=== PATIENT | male | born 1985 | race Caucasian/White ===

== ENCOUNTER 2022-01-01 11:33 | Emergency (ER) | payer OTHER ==
[2022-01-01] MEDS ORDERED: LIDOCAINE 1% W/EPI 1:100,000 MDV 50 ML VIAL ONE (11:46)
[2022-01-01] MEDS ORDERED: HYDROCODONE/APAP 10/325 TAB ONE ×2 (11:57→12:06)
--- NOTE | 2022-01-01 12:01 | ER ---
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 ll1 Bleeding controlled with dressing in place. Gait steady. PMS Intact. Coronavirus screen: Vaccine status: Patient reports being unvaccinated. Client denies travel out of the [place] in the last 14 days. At this time, the client does not indicate any symptoms associated with coronavirus-19. Ebola Screen: Patient denies travel to an Ebola-affected area in the 21 days before illness onset. Initial Sepsis Screen: Does the patient meet any 2 criteria? HR > 90 bpm. No. Patient's initial sepsis screen is negative. Does the patient have a suspected source of infection? Yes: Skin breakdown/wound. Risk Assessment: Do you want to hurt yourself or someone else? Patient reports no desire to harm self or others. Onset of symptoms was January 01, 2022. 11:37 Method Of Arrival: Wheelchair ll1 11:37 Acuity: BRUNO 2 ll1 Historical: - Allergies: 11:36 No Known Allergies; ll1 - Home Meds: 11:36 testerone twice weekly [Active]; losartan-hydrochlorothiazide 50-12.5 mg oral tab ll1 [Active]; [place] Thyroid 30 mg Oral tab [Active]; - PMHx: 11:36 Hypertensive disorder; Hypothyroidism; ll1 - PSHx: 11:36 Appendectomy; ll1 - Immunization history:: Client reports having NOT received the Covid vaccine. Last tetanus immunization: up to date. - Social history:: Smoking status: Patient denies any tobacco usage or history of. - Family history:: not pertinent. Screenin:08 Abuse screen: Denies threats or abuse. Denies injuries from another. Nutritional ld1 screening: No deficits noted. Tuberculosis screening: No symptoms or risk factors identified. Fall Risk None identified. Assessment: 12:08 General: Appears in no apparent distress. comfortable, Behavior is calm, cooperative, ld1 appropriate for age. Pain: Complains of pain in medial aspect of right calf Pain does not radiate. Pain currently is 8 out of 10 on a pain scale. Quality of pain is described as throbbing, Pain began suddenly. Neuro: Level of Consciousness is awake, alert, obeys commands, Oriented to person, place, time, situation. Cardiovascular: Capillary refill < 3 seconds Patient's skin is warm and dry. Respiratory: Airway is patent Respiratory effort is even, unlabored, Respiratory pattern is regular, symmetrical. GI: Abdomen is round non-distended. : No signs and/or symptoms were reported regarding the genitourinary system. EENT: No signs and/or symptoms were reported regarding the EENT system. Derm: Wound noted medial aspect of right calf. Injury Description: Laceration sustained to medial aspect of right calf. Vital Signs: 11:37 Pulse 106; Resp 18; Pulse Ox 97% ; Weight 172.37 kg; Height 6 ft. 2 in. (187.96 cm); ll1 Pain 4/10; 12:08 BP 139 / 86; Pulse 99; Resp 18; Pulse Ox 98% on R/A; ld1 11:37 Body Mass Index 48.79 (172.37 kg, 187.96 cm) ll1 ED Course: 11:36 Patient arrived in ED. eb 11:36 Patient has correct armband on for positive identification. Bed in low position. Call mh5 light in reach. Side rails up X 1. Pulse ox on. NIBP on. 11:39 Fred Collado MD is Attending Physician. ma2 11:39 Triage completed. ll1 11:52 Catherine Hopper, RN is Primary Nurse. aguilar 12:08 Assist provider with laceration repair on medial aspect of right calf using ramses. ld1 Performed by Fred Collado MD Dressed with Kerlix, Patient tolerated well. Patient did not have IV access during this emergency room visit. 12:31 Arm band placed on right wrist. ld1 Administered Medications: 12:06 Drug: [place] (HYDROcodone-acetaminophen) 10 mg-325 mg 1 tabs Route: PO; aguilar 12:06 Follow up: Response: No adverse reaction aguilar Outcome: 12:01 Discharge ordered by . ma2 12:31 Discharged to home ambulatory, with family. ld1 12:31 Condition: stable 12:31 Discharge instructions given to patient, Instructed on discharge instructions, follow up and referral plans. medication usage, Demonstrated understanding of instructions, follow-up care, medications, Prescriptions given X 2. 12:31 Patient left the ED. ld1 Signatures: Ria Blackburn Fred Quach MD MD ma2 Tonya Anton Lynsay, RN RN 1 Kimberly Jordan RN RN ld1 Catherine Hopper RN RN aguilar
--- NOTE | 2022-01-01 12:01 | EDPHYS ---
Physician Documentation [facility] Name: Alfonso Fuentes Age: 36 yrs Sex: Male : 1985 Arrival Date: 01/01/2022 Time: 11:36 Bed 4 Private MD: ED Physician Fred Collado HPI: 01/01 11:57 This 36 yrs old Male presents to ER via Wheelchair with complaints of LACERation. ma2 11:57 Of a 36-year-old male sustained right lower extremity laceration from a brand-new ma2 chainsaw. 11:57 The patient presents with. Onset: The symptoms/episode began/occurred suddenly, 1 ma2 hour(s) ago. Historical: - Allergies: 11:36 No Known Allergies; ll1 - Home Meds: 11:36 testerone twice weekly [Active]; losartan-hydrochlorothiazide 50-12.5 mg oral tab ll1 [Active]; [place] Thyroid 30 mg Oral tab [Active]; - PMHx: 11:36 Hypertensive disorder; Hypothyroidism; ll1 - PSHx: 11:36 Appendectomy; ll1 - Immunization history:: Client reports having NOT received the Covid vaccine. Last tetanus immunization: up to date. - Social history:: Smoking status: Patient denies any tobacco usage or history of. - Family history:: not pertinent. ROS: 11:57 MS/extremity: Negative for injury or acute deformity, decreased range of motion, ma2 deformity. 11:57 Constitutional: Negative for fever, chills, and weight loss. 11:57 All other systems are negative. Exam: 11:57 Constitutional: This is a well developed, well nourished patient who is awake, alert, ma2 and in no acute distress. Head/Face: Normocephalic, atraumatic. Eyes: Pupils equal round and reactive to light, extra-ocular motions intact. Lids and lashes normal. Conjunctiva and sclera are non-icteric and not injected. Cornea within normal limits. Periorbital areas with no swelling, redness, or edema. ENT: Nares patent. No nasal discharge, no septal abnormalities noted. Tympanic membranes are normal and external auditory canals are clear. Oropharynx with no redness, swelling, or masses, exudates, or evidence of obstruction, uvula midline. Mucous membranes moist. Neck: Trachea midline, no thyromegaly or masses palpated, and no cervical lymphadenopathy. Supple, full range of motion without nuchal rigidity, or vertebral point tenderness. No Meningismus. Chest/axilla: Normal chest wall appearance and motion. Nontender with no deformity. No lesions are appreciated. Cardiovascular: Regular rate and rhythm with a normal S1 and S2. No gallops, murmurs, or rubs. Normal PMI, no JVD. No pulse deficits. Respiratory: Lungs have equal breath sounds bilaterally, clear to auscultation and percussion. No rales, rhonchi or wheezes noted. No increased work of breathing, no retractions or nasal flaring. Abdomen/GI: Soft, non-tender, with normal bowel sounds. No distension or tympany. No guarding or rebound. No evidence of tenderness throughout. Skin: Warm, dry with normal turgor. Normal color with no rashes, no lesions, and no evidence of cellulitis. MS/ Extremity: Laceration right lower extremity, transverse laceration linear on middle right tibia. Superficial, bone not exposed. Neurovascular intact. Pulses equal, no cyanosis. Neurovascular intact. Full, normal range of motion. Neuro: Awake and alert, GCS 15, oriented to person, place, time, and situation. Cranial nerves II-XII grossly intact. Motor strength 5/5 in all extremities. Sensory grossly intact. Cerebellar exam normal. Normal gait. Vital Signs: 11:37 Pulse 106; Resp 18; Pulse Ox 97% ; Weight 172.37 kg; Height 6 ft. 2 in. (187.96 cm); ll1 Pain 4/10; 12:08 BP 139 / 86; Pulse 99; Resp 18; Pulse Ox 98% on R/A; ld1 11:37 Body Mass Index 48.79 (172.37 kg, 187.96 cm) ll1 Laceration: 11:57 Wound Repair of 4cm ( 1.6in ) subcutaneous laceration to right leg. Linear shaped.. ma2 Distal neuro/vascular/tendon intact. Anesthesia: Wound infiltrated with 20 mls of 1% lidocaine w/ Epi. Wound prep: Simple cleansing, Moderate cleansing. Skin closed with 12 1-0 Tim using simple sutures and sterile technique. Dressed with 4x4's. Patient tolerated well. MDM: 11:39 Patient medically screened. ma2 11:57 Differential diagnosis: sprain, Superficial laceration, there is no bone laceration, ma2 there is no tendon or vascular injury. Data reviewed: vital signs, nurses notes. Counseling: I had a detailed discussion with the patient and/or guardian regarding: the historical points, exam findings, and any diagnostic results supporting the discharge/admit diagnosis, the presence of at least one elevated blood pressure reading (>120/80) during this emergency department visit, the need for outpatient follow up. Response to treatment: the patient's symptoms have markedly improved after treatment. Administered Medications: 12:06 Drug: [place] (HYDROcodone-acetaminophen) 10 mg-325 mg 1 tabs Route: PO; aguilar 12:06 Follow up: Response: No adverse reaction aguilar Disposition Summary: 01/01/22 12:01 Discharge Ordered Location: Home ma2 Condition: Stable ma2 Diagnosis - Laceration without foreign body, right lower leg ma2 Followup: ma2 - With: Private Physician - When: Tomorrow - Reason: Continuance of care Discharge Instructions: - Discharge Summary Sheet ma2 - Laceration Care, Adult, [id number] ma2 Forms: - Medication Reconciliation Form ma2 - Thank You Letter ma2 - Antibiotic Education ma2 - Prescription Opioid Use ma2 Prescriptions: - Augmentin 875-125 mg Oral Tablet - take 1 tablet by ORAL route every 12 hours for 10 days; 20 tablet; Refills: 0, ma2 Product Selection Permitted - Diclofenac Sodium 75 mg Oral Tablet Sustained Release - take 1 tablet by ORAL route 2 times per day; 30 tablet; Refills: 0, Product ma2 Selection Permitted Signatures: Fred Collado MD MD va2 Iván Shabazz RN RN [facility] Catherine Hopper RN RN
[2022-01-01 13:04] VITALS: BP 139/86; O2SAT 98
== END 2022-01-01 12:31 | disposition home or self-care (01) ==
LOC: ER 11:33
PROC: 0JQN0ZZ Repair Right Lower Leg Subcutaneous Tissue and Fascia, Open Approach (ICD-10-PCS; principal; 2022-01-01)
DX: S81.811A Laceration without foreign body, right lower leg, initial encounter (principal); W29.3XXA Contact with powered garden and outdoor hand tools and machinery, initial encounter; E03.9 Hypothyroidism, unspecified; I10 Essential (primary) hypertension
CPT/HCPCS: 99284